=== PATIENT | female | born 1995 | race Caucasian/White ===

== ENCOUNTER 2022-12-09 14:23 | Outpatient (CLI) | payer OTHER ==
[2022-12-09] MEDS ORDERED: PRENATAL TABLE1 EAC1 PO (14:50)
== END 2022-12-10 08:07 | disposition home or self-care (01) ==
LOC: OBS/DEL 14:23 → LDR 14:25 → OBS/DEL 14:53
PROVIDERS: Obstetrics & Gynecology; ATTEND Obstetrics & Gynecology
DX: O47.1 False labor at or after 37 completed weeks of gestation (principal); Z3A.38 38 weeks gestation of pregnancy; Z20.822 Contact with and (suspected) exposure to COVID-19; Z91.040 Latex allergy status; Z91.013 Allergy to seafood; Z91.018 Allergy to other foods